=== PATIENT | male | born 1965 | race Caucasian/White ===

== ENCOUNTER 2019-01-04 06:14 | Day surgery (SDC) | payer OTHER ==
[2019-01-03 08:46] VITALS: BMI 27.3
[~2019-01-04 06:14] MED LIST: ceFAZolin SODIUM 1 GM VIAL IVPB ONE
[2019-01-04] MEDS ORDERED: MIDAZOLAM HCL 2 MG/2 ML SINGLE DOSE VIAL ONE ×2 (07:19)
[2019-01-04] MEDS ORDERED: PROPOFOL 20 ML ONE (07:25)
[2019-01-04] MEDS ORDERED: SUCCINYLCHOLINE CHLORIDE 200 MG/10 ML SYRINGE ONE (07:26)
--- NOTE | 2019-01-04 07:52 | HP ---
Satellite [facility] - Chief Complaint Chief Complaint: R SHOULDER PAIN History Source: Patient - Past Medical History Allergies/Adverse Reactions: Allergies Allergy/AdvReac Type Severity Reaction Status Date / Time No Known Allergies Allergy Verified 01/03/19 08:38 - Current Medications Current Medications: Home Medications Medication Instructions Recorded Rosuvastatin [Crestor -] 5 mg PO DAILY 01/03/19 Satellite Physical Exam - Physical Examination Vital Signs: Vital Signs Period Temp Pulse Resp BP Sys/Andersen Pulse Ox Last 24 Hr 98.0 F-98.0 F 67-67 20-20 141-141/91-91 99 Extremities: Other (+ WEAKNESS TDA) Satellite Impression/Plan - Impression/Plan Impression: INTERNAL DERANGEMENT RIGHT SHOULDER Operative Procedure: ARTHROSCXOPY RIGHT SHOULDER AND ANY INDICATED PROCEDURE Date to be Performed: 01/04/19
[2019-01-04] MEDS ORDERED: ceFAZolin SODIUM 1 GM VIAL ONE (08:00)
[2019-01-04] MEDS ORDERED: ONDANSETRON 4 MG/2 ML VIAL IVPUSH PRN (08:06)
[2019-01-04] MEDS ORDERED: oxyCODONE HCL 5 MG TABLET PO PRN (08:06)
[2019-01-04] MEDS ORDERED: LACTATED RINGERS SOLUTION 1,000 ML IV SCH (08:15)
--- NOTE | 2019-01-04 09:05 | OP ---
Operative Note - Note: Operative Date: 01/04/19 ([facility]) Pre-Operative Diagnosis: right shoulder rct Operation: right shoulder arthroscopy with RCR, SAD Post-Operative Diagnosis: Same as Pre-op Surgeon: Jacek Padron Efficiency Analyst: Feliciano Tee Anesthesiologist/MANOMETER TECHNICIAN: Freddy Peoples Anesthesia: General, Local Specimens Removed: shavings Estimated Blood Loss (mls): 5 Operative Report Dictated: Yes
[2019-01-04 13:05] VITALS: TEMP 97.8
[2019-01-04 13:12] VITALS: BP 118/60; PULSE 80
--- NOTE | 2019-01-06 14:50 | PATH ---
Surgical Pathology Report Patient Name: FELIPA FOX Med. Rec. #: [id number] /Age/Gender: 1965 (Age: 53) / M Account: [id number] Location: [facility] SURGICAL Taken: 01/04/2019 Received: 01/04/2019 Reported: 01/06/2019 Physicians: Jacek Padron M.D. Specimen(s) Received RIGHT SHOULDER SHAVINGS Clinical History Internal derangement Final Diagnosis RIGHT SHOULDER SHAVINGS: FRAGMENTS OF FIBROSYNOVIAL AND CARTILAGINOUS TISSUE WITH FOCAL DEGENERATIVE CHANGE. SEPARATE BONE AND SKELETAL MUSCLE FRAGMENTS WITH NO SIGNIFICANT PATHOLOGIC CHANGE. Electronically Signed Angelito Melgoza M.D. Gross Description Received in formalin labeled "right shoulder shavings," is a 5.5 x 4.0 x 0.7 cm aggregate of hays-yellow soft tissue fragments. A mill representative portion is submitted in one cassette. DL/01/04/2019 saudi/01/04/2019
--- NOTE | 2019-01-09 15:53 | OP ---
DATE OF OPERATION: 01/04/2019 PREOPERATIVE DIAGNOSIS: Right rotator cuff tear. POSTOPERATIVE DIAGNOSIS: Right rotator cuff tear. PROCEDURE: Arthroscopy, right shoulder with subacromial decompression and right rotator cuff repair. SURGICAL ATTENDING: Jacek Padron MD UNDERWATER WELDER: ESTHER Celestin ANESTHESIA: Regional and sedation. CLOSURE: SutureTape and SwiveLock for rotator cuff, 3-0 nylon for skin. ESTIMATED BLOOD LOSS: Negligible. COMPLICATIONS: None. CONDITION: To the recovery room in stable condition. DESCRIPTION OF PROCEDURE: Patient was taken to the operating room on January 04, 2019. Regional and IV sedation anesthesia was administered by the anesthesiologist. IV Kefzol was administered prophylactically prior to the case. The patient was placed in the beach chair position with all prominences well padded. Right shoulder area was prepped and draped in the usual sterile fashion. First, a diagnostic arthroscopy of the glenohumeral joint was performed. The posterior portal was made 2 fingerbreadths below the acromion 1st with a 15 blade followed by a blunt trocar. The anterior portal was made with spinal needle followed by a 15 blade and a blunt trocar. Circumferential exam of the glenohumeral joint revealed the following: Intact glenoid humeral head articular cartilage, intact labrum circumferentially, intact biceps and biceps anchor. No loose bodies in the axillary pouch, intact subscapularis through its insertion. Looking superiorly, the rotator cuff was seen to be markedly frayed and had a crescent-shaped tear. Its leading edge was debrided from this vantage point as well. The trocar and the fluid was drained from the shoulder. Posterior trocar was redirected in the subacromial space. Accessory lateral portal was made with a 15 blade followed by a blunt trocar. A large amount of subacromial bursa tissue was encountered. This was debrided using the ArthroCare and the shaver. A large anterior spur on the acromion was noted. This was debrided back to smooth surface of bone gaining sufficient height for the rotator cuff was left in situ. Looking inferiorly on the humeral head, soft tissue that was encasing that was debrided using a shaver and the ArthroCare device. The supraspinatus region was probed and found to be very, very thin with just a whisk of tissue still attached to the greater tuberosity. The rest of this was debrided exposing a full-thickness tear at this point of the leading edge of the supraspinatus tendon. The bone was burred to stimulate some bleeding bone and remove any primitive healing in this region. Leading edge of the cuff was also debrided getting back to healthier tissue. Multiple SutureTape sutures in a horizontal mattress formation were placed. They were fixated to the greater tuberosity using 3 SwiveLock anchors achieving excellent fixation. The sutures were cut flush with the bone. The shoulder was taken through a range of motion, found to have excellent stability to the repair, excellent coverage in the subacromial space. The fluid was drained. The trocars were removed. The portals were closed with 3-0 nylon suture. Sterile pressure dressing followed by a shoulder immobilizer was applied. Patient awakened from anesthesia and transferred to recovery room in stable condition. No complications. Estimated blood loss negligible. Shanelle MCCLOUD/[id number]
== END 2019-01-04 12:30 | disposition home or self-care (01) ==
LOC: JASU-SURG 06:14
PROVIDERS: ATTEND Orthopaedic Surgery
PROC: 0LQ14ZZ Repair Right Shoulder Tendon, Percutaneous Endoscopic Approach (ICD-10-PCS; principal; 2019-01-04 08:00)
PROC: 0RNJ4ZZ Release Right Shoulder Joint, Percutaneous Endoscopic Approach (ICD-10-PCS; 2019-01-04 08:00)
DX: M75.121 Complete rotator cuff tear or rupture of right shoulder, not specified as traumatic (principal)
CPT/HCPCS: 88304-TC; 94760

== ENCOUNTER 2019-01-04 22:14 | Emergency (ER) | payer OTHER ==
[2019-01-04 22:41] VITALS: BMI 27.3
[2019-01-05] MEDS ORDERED: SODIUM CHLORIDE 0.9% 500 ML INFUS.BAG IV ONE ×2 (00:04→01:43)
--- NOTE | 2019-01-05 00:05 | PDOC ---
History of Present Illness - General Chief Complaint: Pain Stated Complaint: R/SHOULDER/PAIN Time Seen by Provider: 01/04/19 23:43 History Source: Patient Exam Limitations: No Limitations - History of Present Illness Initial Comments: Carlitos Casas is a 53 yo M w a hx of a right shoulder rotator cuff surgery earlier today with Dr. Padron, HTN, and HCL who presents to [facility] er with a significant amount of right shoulder pain and a mild fever of 100.5. The patient states that he came to the ER because he was in a significant amount of shoulder pain and couldn't bear it. The pain is in the right shoulder and it does not radiate. He rates it as 7/10 and describes it as a sharp sensation. He denies SOB, difficulty breathing, headache, chest pain, cough, nausea, vomitingm, dysuria, frequency, or urgency. Ortho: Dr. padron PSH: Shoulder and foot surgery Allergies: NKA, NKDA Social Hx: Smokes a few cigarettes every day. Denies heavy alcohol or illicit drug usage. Past History - Past Medical History Allergies/Adverse Reactions: Allergies Allergy/AdvReac Type Severity Reaction Status Date / Time No Known Allergies Allergy Verified 01/04/19 22:37 Home Medications: Ambulatory Orders Rosuvastatin [Crestor -] 5 mg PO DAILY 01/03/19 Oxycodone HCl/Acetaminophen [Percocet 5-325 mg Tablet] 1 - 2 tab PO Q6H #30 tab MDD 6 01/04/19 Anemia: No Asthma: No Cancer: No Cardiac Disorders: No CVA: No COPD: No CHF: No Dementia: No Diabetes: No GI Disorders: No Disorders: No HTN: No Hypercholesterolemia: Yes Liver Disease: No Seizures: No Thyroid Disease: No - Surgical History Orthopedic Surgery: Yes (shoulder sx, foot sx) - Psycho Social/Smoking Cessation Hx Smoking History: Current some day smoker Have you smoked in the past 12 months: Yes Number of Cigarettes Smoked Daily: 0 Cigars Per Day: 1 Information on smoking cessation initiated: No Hx Alcohol Use: Yes Drug/Substance Use Hx: No Substance Use Type: Alcohol Hx Substance Use Treatment: No Review of Systems - Review of Systems Able to Perform ROS?: Yes Comments:: CONSTITUTIONAL: Present: fever, chills Absent: diaphoresis, generalized weakness, malaise, loss of appetite HEENT: Absent: rhinorrhea, nasal congestion, throat pain, throat swelling, difficulty swallowing, mouth swelling, ear pain, eye pain, visual Changes CARDIOVASCULAR: Absent: chest pain, syncope, palpitations, irregular heart rate, lightheadedness , peripheral edema RESPIRATORY: Absent: cough, shortness of breath, dyspnea with exertion, orthopnea, wheezing, stridor, hemoptysis GASTROINTESTINAL: Absent: abdominal pain, abdominal distension, nausea, vomiting, diarrhea, constipation, melena, hematochezia GENITOURINARY: Absent: dysuria, frequency, urgency, hesitancy, hematuria, flank pain, genital pain MUSCULOSKELETAL: Present: myalgia, arthralgia, joint swelling SKIN: Absent: rash, itching, pallor HEMATOLOGIC/IMMUNOLOGIC: Absent: easy bleeding, easy bruising, lymphadenopathy, frequent infections ENDOCRINE: Absent: unexplained weight gain, unexplained weight loss, heat intolerance, cold intolerance NEUROLOGIC: Absent: headache, focal weakness or paresthesias, dizziness, unsteady gait, seizure, mental status changes, bladder or bowel incontinence PSYCHIATRIC: Absent: anxiety, depression, suicidal or homicidal ideation, hallucinations. *Physical Exam - Vital Signs Last Vital Signs Temp Pulse Resp BP Pulse Ox 100.5 F H 83 20 136/77 96 01/04/19 22:37 01/04/19 22:37 01/04/19 22:37 01/04/19 22:37 01/04/19 22:37 - Physical Exam Comments: GENERAL: Well developed, well nourished. Awake and alert. Mild distress. HEENT: Normocephalic, atraumatic. PERRLA, EOMI. Moist mucous membranes. Oropharynx is clear. NECK: Supple. Full ROM. CARDIOVASCULAR: Tachycardic rate and regular rhythm. No murmurs, rubs, or gallops. Distal pulses are 2+ and symmetric. PULMONARY: No evidence of respiratory distress. Lungs clear to auscultation bilaterally. No wheezing, rales or rhonchi. ABDOMINAL: Soft. Non-tender. Non-distended. No rebound or guarding. No organomegaly. Normoactive bowel sounds. RIGHT SHOULDER: There are 3 bandages covering the 3 arthroscopic entrances. All the wounds are closed with sutures. The wounds do no appear erythematous and are not edematous. The shoulder has diffuse pain upon palpation. There is limited ROM secondary to pain. No palpable crepitus. Normal sensation. MUSCULOSKELETAL: Normal range of motion at all other joints. No other bony deformities or tenderness. No CVA tenderness. EXTREMITIES: No cyanosis. No clubbing. No edema. No calf tenderness. SKIN: Warm and dry. Normal capillary refill. No rashes. No jaundice. NEUROLOGICAL: Alert, awake, appropriate. Normal speech. Gait is normal without ataxia. PSYCHIATRIC: Cooperative. Good eye contact. Appropriate mood and affect. ED Treatment Course - LABORATORY CBC & Chemistry Diagram: 01/05/19:17 01/05/19 00:17 - RADIOLOGY Radiology Studies Ordered: Category Date Time Status CHEST PA & LAT [RAD] Stat Radiology 01/05/19 00:02 Ordered SHOULDER-RIGHT [RAD] Stat Radiology 01/05/19 00:00 Ordered Medical Decision Making - Medical Decision Making Carlitos Casas is a 53 yo M w a hx of a right shoulder rotator cuff surgery earlier today with Dr. Padron, HTN, and HCL who presents to [facility] er with a significant amount of right shoulder pain and a mild fever of 100.5. The patient states that he came to the ER because he was in a significant amount of shoulder pain and couldn't bear it. The pain is in the right shoulder and it does not radiate. He rates it as 7/10 and describes it as a sharp sensation. He denies SOB, difficulty breathing, headache, chest pain, cough, nausea, vomitingm, dysuria, frequency, or urgency. Vital Signs Temp Pulse Resp BP Pulse Ox 100.5 F H 83 20 136/77 96 01/04/19 22:37 01/04/19 22:37 01/04/19 22:37 01/04/19 22:37 01/04/19 22:37 - febrile MDM: Patient presents with shoulder pain and a low grade fever after surgery today. The fever is most likely a normal reaction from the anesthetic drugs he took during the operation. Will obtain basic labs, a CXR and urine to r/o other sources of infection. DDx IBNLT: Post op fever, electrolyte/metabolic disturbance, PNA, uti/pylo Plan: Labs, urine, cxr, ekg, ortho consult, re-assess Ortho Consult: I spoke with Dr. Padron who recommends giving the patient tylenol and having him follow up in his office tomorrow morning. EKG: NS rate of 80, narrow complexes, normal axis, no hypertrophy, no ST elevations or depressions, Q wave and TWI in lead III, QTc 429, MN 176. Impression - Normal sinus rhythm and Normal ECG. Labs: Leukocytosis with left shift. CXR: No acute pathology or signs of infection Urine: Clean with no signs of infection Re-assessment: Patient feels well after analgesia. Disposition: Home with Dr. Nereida MANUEL tomorrow morning. Discharge - Discharge Information Problems reviewed: Yes Clinical Impression/Diagnosis: Shoulder pain Qualifiers: Chronicity: acute Laterality: right Qualified Code(s): M25.511 - Pain in right shoulder Condition: Stable Disposition: HOME - Admission No - Follow up/Referral Referrals: ON STAFF,NOT [Primary Care Provider] - Jacek Padron MD [Staff Physician] - - Patient Discharge Instructions Patient Printed Discharge Instructions: DI for Postoperative Pain Additional Instructions: You came into the ER with shoulder pain and a fever. We gave you some medications which made your fever go away and your shoulder pain subsided. Please call up Dr. Padron and schedule an appointment with him tomorrow. Come back to the ER if your pain worsens, you get a fever, or have any other new or worsening concerns. Thank you for coming to the [facility] ER. We hope you feel better soon! Print Language: MARSHALLESE - Post Discharge Activity
[2019-01-05] MEDS ORDERED: ACETAMINOPHEN 325 MG TABLET (FP) PO ONE (00:16)
[2019-01-05] MEDS ORDERED: ACETAMINOPHEN 325 MG TABLET (FP) ONE (00:19)
[2019-01-05 00:23] LABS: BASO % 0.4 % (0-2.0); EOS % 0.1 % (0-4.5); HEMATOCRIT 40.1 % (35.4-49); HEMOGLOBIN 13.5 GM/dL (11.7-16.9); LYMPH % 6.5 % (8-40); MCHC 33.6 g/dl (32.0-35.9); MEAN CELL VOLUME 86.4 fl (80-96); MEAN PLT VOLUME 7.6 fl (7.5-11.1); MONO % 6.2 % (3.8-10.2); NEUT % 86.8 % (42.8-82.8); PLATELET COUNT 263 K/MM3 (134-434); RBC 4.64 M/mm3 (4.00-5.60); RDW 13.2 % (11.9-15.9); WHITE BLOOD COUNT 13.6 K/mm3 (4.0-10.0)
[2019-01-05] MEDS ORDERED: KETOROLAC TROMETHAMINE 30 MG/1 ML VIAL IVPUSH ONE (00:25)
[2019-01-05 00:42] LABS: ALBUMIN 3.6 g/dl (3.4-5.0); BILIRUBIN,TOTAL 0.6 mg/dL (0.2-1); BLOOD UREA NITROGEN 9.6 mg/dL (7-18); CALCIUM 8.5 mg/dL (8.5-10.1); POTASSIUM 3.9 mmol/L (3.5-5.1); TOT PROT 6.7 g/dl (6.4-8.2)
[2019-01-05] MEDS ORDERED: KETOROLAC TROMETHAMINE 30 MG/1 ML VIAL ONE (00:54)
--- NOTE | 2019-01-05 02:07 | PDOC ---
Attending Attestation - Resident Resident Name: Grant Nix - ED Attending Attestation I have performed the following: I have examined & evaluated the patient, The case was reviewed & discussed with the resident, I agree w/resident's findings & plan, Exceptions are as noted - HPI HPI: 01/05/19 02:04 Here some serious snoring 3-year-old male history of hypertension hyperlipidemia status post rotator cuff surgery earlier today with Dr. Padron here complaining of severe shoulder pain. Was also noted to have a fever of 100.5 denies any cough no nausea no vomiting no change to his urine no diarrhea denies any shortness of breath states pain is severe he took a Percocet with minimal relief - Physicial Exam PE: 01/05/19 02:05 Awake alert no acute distress right shoulder dressings are intact there is no noted swelling erythema or warmth lungs are clear bilaterally heart is regular without murmurs rubs or gallops abdomen soft nontender extremities otherwise without swelling skin negative for any rash - Medical Decision Making 01/05/19 02:06 53-year-old postop day 0 rotator cuff repair here with a low-grade fever and severe pain differential includes effects of residual anesthetics UTI pneumonia postoperative pain plan CBC CMP chest x-ray UA. Discussed with Dr. Padron Resident discussed with Dr. De La Torre who recommends Tylenol will see the patient in the office in under 24 hours chest x-ray is unremarkable UA is pending pain is improved with medications given in the ED Heart Score/ECG Review #1 General ECG Interpretation: Sinus Rhythm, Normal Rate (80), Normal Intervals, No acute ischemic changes Compared to previous ECG there are: Other (twi III only)
[2019-01-05 02:08] LABS: PH,URINE 6.5 (5.0-8.0); URINE APPEARANCE CLEAR; URINE BILIRUBIN NEGATIVE (NEGATIVE); URINE COLOR YELLOW; URINE GLUCOSE (UA) NEGATIVE (NEGATIVE); URINE KETONE NEGATIVE (NEGATIVE); URINE LEUK ESTERASE NEGATIVE (NEGATIVE); URINE NITRITE NEGATIVE (NEGATIVE); URINE PROTEIN NEGATIVE (NEGATIVE); URINE UROBILINOGEN 0.2 mg/dL (0.2-1.0)
[2019-01-05 02:27] VITALS: BP 139/78; PULSE 71; TEMP 98.9
--- NOTE | 2019-01-05 13:19 | EKG ---
Test Reason : Blood Pressure : / mmHG Vent. Rate : 080 BPM Atrial Rate : 080 BPM P-R Int : 176 ms QRS Dur : 092 ms QT Int : 372 ms P-R-T Axes : 034 014 014 degrees QTc Int : 429 ms NORMAL SINUS RHYTHM NORMAL ECG NO PREVIOUS ECGS AVAILABLE Confirmed by NOEL LOO MD ([id number]) on 01/05/2019 1:18:38 PM Referred By: Confirmed By:NOEL LOO MD
== END 2019-01-05 02:27 | disposition home or self-care (01) ==
LOC: JER 22:14
PROC: 3E0333Z Introduction of Anti-inflammatory into Peripheral Vein, Percutaneous Approach (ICD-10-PCS; principal; 2019-01-04)
PROC: 3E0337Z Introduction of Electrolytic and Water Balance Substance into Peripheral Vein, Percutaneous Approach (ICD-10-PCS; 2019-01-04)
DX: M25.511 Pain in right shoulder (principal); G89.18 Other acute postprocedural pain; I10 Essential (primary) hypertension; F17.210 Nicotine dependence, cigarettes, uncomplicated
CPT/HCPCS: 36415; 71046-TC-FY; 73030-TC-RT-FY; 80053; 81003; 85025; 87086; 93005; 93010; 99283-25